=== PATIENT | male | born 1955 | race Two or more races ===

== ENCOUNTER 2017-11-01 09:59 | Outpatient (CLI) | payer OTHER | END 2017-11-01 10:03 | disposition home or self-care (01) | LOC: RAD 501 09:59 | DX: M25.552 Pain in left hip (principal) ==

== ENCOUNTER 2019-03-08 10:05 | Outpatient (CLI) | payer OTHER | END 2019-03-08 10:09 | disposition home or self-care (01) | LOC: RAD 10:05 | DX: M75.42 Impingement syndrome of left shoulder (principal) ==

== ENCOUNTER 2019-05-31 11:05 | Outpatient (CLI) | payer OTHER | END 2019-05-31 11:07 | disposition home or self-care (01) | LOC: RAD 11:05 | DX: M76.62 Achilles tendinitis, left leg (principal); M77.32 Calcaneal spur, left foot ==